=== PATIENT | female | born 1970 | race Caucasian/White ===

== ENCOUNTER 2019-04-01 17:26 | Inpatient (IN) | payer BC ==
[~2019-04-01] VITALS: Ht 157.5 cm; Wt 68.0 kg
[2019-04-01 17:31] VITALS: Ht 157.5 cm; Wt 68.0 kg
--- NOTE | 2019-04-01 17:37 | NUR ---
PATIENT BIB [facility] FROM [facility]. PT WAS PLACED ON A 5150 HOLD DUE TO SI. PT DENIES SI/HI DURING ASSESSMENT. PT PLEASANT BUT TEARFUL AND STATING "I DONT WANT TO GO BACK THERE, THEY ARE MEAN TO ME". BREATHING E/U, PT C/O ABD PAIN X 1 YEAR. 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 ABD DISTENDED, FIRM, NO PAIN ON PALPATION. PT DENIES N/V AND SAID SHE JUST STARTED HAVING PARATHENTESIS TO REMOVE FLUID FOR COMFORT. PATIENT SKIN IS DISCOLORED WITH MULTIPLE ABRASIONS NOTED TO UPPER AND LOWER EXTREMITIES. ABRASION NOTED TO RIGHT LEG AND KNEE. 3+ EDEMA TO BILATERAL LOWER EXTREMITIES. PT PLACED ON ALL MONITORS FOR FURTHER OBSERVATION. SITTER FROM [facility] BEDSIDE.
[2019-04-01 18:30] LABS: PLATELET COUNT 81 x10^3mcL (130-400); RED CELL DISTRIBUTION WIDTH 17.4 % (11.5-14.5)
[2019-04-01 18:31] LABS: CALCIUM 8.1 mg/dL (8.5-10.1); CARBON DIOXIDE 25.3 mmol/L (21-32); CHLORIDE SERUM 100 mmol/L (98-107); CREATININE SERUM 0.8 mg/dL (0.6-1.0); GFR1 > 60 mL/min; POTASSIUM SERUM 4.4 mmol/L (3.5-5.1); SODIUM SERUM 134 mmol/L (136-145)
[2019-04-01 18:42] LABS: UA SPECIFIC GRAVITY 1.015 (1.005-1.035); microscopic required? YES; urine erythrocyte 1+ (NEGATIVE)
[2019-04-01 18:43] LABS: ALKALINE PHOSPHATASE 273 U/L (46-116); ALT/SGPT 97 U/L (14-59); AST/SGOT 227 U/L (15-37); BILIRUBIN TOTAL 8.61 mg/dL (0.20-1.00); HDL CHOLESTEROL 40 mg/dL (40-60); LIPASE 205 IU/L (73-393); MAGNESIUM 1.8 mg/dL (1.8-2.4); TOTAL PROTEIN, SERUM 6.6 g/dL (6.4-8.2)
--- NOTE | 2019-04-01 18:43 | NUR ---
MEDICATED PER MD ORDERS
[2019-04-01 18:51] LABS: GLUCOSE SERUM 191 mg/dL (74-106)
[2019-04-01 18:53] LABS: ALBUMIN 2.2 g/dL (3.4-5.0); BAND NEUTROPHIL 1 % (0-10); BASOPHIL 0 % (0-2); CHOLESTEROL 102 mg/dL (<200); METAMYELOCTE 1 % (0-2); MONOCYTE 9 % (0-7); SEGMENTED NEUTROPHILS 66 % (37-75); T4(THYROXINE) 4.2 ug/dL (4.7-13.3)
[2019-04-01 18:55] LABS: rbc morphology (normal/abnorm) ABNORMAL (NORMAL)
[2019-04-01 18:56] LABS: schistocyte (helmet cell) 1+
[2019-04-01 18:57] LABS: PLATELET MORPHOLOGY PLATELETS DECREASED
--- NOTE | 2019-04-01 19:08 | NUR ---
PROVIDED REPORT TO BRADY KIRKPATRICK FOR CONTINUOUS CARE OF PATIENT.
--- NOTE | 2019-04-01 19:10 | NUR ---
PT REPORT RECEIVED FROM PURNIMA ABREU TO ASSUME PT CARE. PT RESTING IN A POSITION OF COMFORT AT THIS TIME AOX4, RESP EVEN AND UNLABORED, NO ACUTE DISTRESS NOTED. NEW IV ESTABLISHED ON PT AND MEDICATED PER EMAR.
[2019-04-01 19:49] LABS: AMPHETAMINE QUAL UR NONE DETECTED (See below)
--- NOTE | 2019-04-01 20:00 | NUR ---
IV INFILTRATED AT THIS TIME, REMOVED AND WARM COMPRESS APPLIED TO L ARM. DR HOPSON AWARE, PER DR HOPSON CONTINUE INSERTING PERIPHERAL LINES INTO PT.
--- NOTE | 2019-04-01 20:19 | NUR ---
PT FAMILY MEMBERS AT BEDSIDE TO VISIT OVER THE LAST 30 MINUTES, PT NOTED TEARFUL SEVERAL TIMES.
[2019-04-01] MEDS ORDERED: CIPRO500 MG PO (21:23)
[2019-04-01] MEDS ORDERED: LACTULOSE10 GM/152 PO (21:24)
[2019-04-01] MEDS ORDERED: LASIX40 MG PO (21:24)
[2019-04-01] MEDS ORDERED: VITB12I PO (21:24)
[2019-04-01] MEDS ORDERED: MIDODRINE HCL10 MG PO (21:24)
[2019-04-01] MEDS ORDERED: VITAMIN D32000 I2 PO (21:25)
[2019-04-01] MEDS ORDERED: XIFAXAN550 M1 PO (21:25)
[2019-04-01] MEDS ORDERED: PROTONIX40 MG PO (21:25)
[2019-04-01] MEDS ORDERED: ALDACTONE50 MG PO (21:25)
[2019-04-01] MEDS ORDERED: SYNTHROID0.125 MG PO (21:26)
--- NOTE | 2019-04-01 21:30 | NUR ---
PT REPORT CALLED TO DOUGLAS ABREU TO ASSUME PT CARE.
--- NOTE | 2019-04-01 21:35 | NUR ---
PT TRANSFERRED TO [facility] BY [facility] BY CAITLIN ABREU AND ERNIE EMT. PT ON FULL CM FOR TRANSPORT. PT AOX4, RESP EVEN AND UNLABORED, NO ACUTE DISTRESS NOTED. PT TRANSFERRED FROM [facility] TO BED WITHOUT INCIDENT. DOUGLAS ABREU TO ASSUME PT CARE.
[2019-04-01 22:19] VITALS: BP 104/71
--- NOTE | 2019-04-01 22:24 | NUR ---
RECEIVED PT FROM ED VIA OMID. ORIENTED PT TO ROOM AND SURROUNDINGS. IV NOTED TO RAC PATENT AND INTACT .TELE 27 PLACED ON PT READING STA. INSTRUCTED PT ON THE USE OF CALL LIGHT FOR ASSISTANCE. ENDORSED PT TO PRIMARY AMOS PETIT
--- NOTE | 2019-04-01 22:32 | NUR ---
RECEIVED PT FROM BRADY MCKENZIE. PT ORIENTED TO ROOM. IN NO ACUTE DISTRESS. CALL LIGHT WITHIN REACH. BED IN LOWEST POSITION. WILL CONTINUE TO MONITOR.
--- NOTE | 2019-04-02 01:30 | NUR ---
PT RESTING IN BED. RR EVEN AND UNLABORED. IN NO ACUTE DISTRESS. CALL LIGHT WITHIN REACH. BED IN LOWEST POSITION. WILL CONTINUE TO MONITOR.
--- NOTE | 2019-04-02 03:30 | NUR ---
PT REQUESTING TRAMADOL FOR GENERALIZED BODY PAIN. DR. CLARKE NOTIFIED. AWAITING FURTHER ORDERS.
--- NOTE | 2019-04-02 05:58 | NUR ---
LAU CATHETER REMOVED PER ORDERS. PT TOLERATED WELL.
--- NOTE | 2019-04-02 06:04 | NUR ---
PT CONTINUES TO REQUEST TRAMADOL FOR PAIN. DR. CLARKE NOTIFIED. AWAITING FURTHER ORDERS.
[2019-04-02 06:48] LABS: BASOPHIL % 0.1 % (0-2)
[2019-04-02 07:31] LABS: CHLORIDE SERUM 103 mmol/L (98-107); CREATININE SERUM 0.9 mg/dL (0.6-1.0); GFR1 > 60 mL/min; GLUCOSE SERUM 97 mg/dL (74-106); PHOSPHOROUS 3.7 mg/dL (2.5-4.9); POTASSIUM SERUM 4.3 mmol/L (3.5-5.1); SODIUM SERUM 136 mmol/L (136-145)
[2019-04-02 08:02] VITALS: BP 103/64
[2019-04-02 08:05] LABS: PLATELET COUNT 81 x10^3mcL (130-400); RED CELL DISTRIBUTION WIDTH 17.4 % (11.5-14.5)
--- NOTE | 2019-04-02 09:47 | NUR ---
SEEN BY DOCTOR BILLY. PATIENT IS VERY EMOTIONAL, CRYING AFTER DOCTOR MARIAJOSE DISCUSSED WITH PATIENT REGUARDING PLAN OF CARE AND CURRENT CONDITION.
--- NOTE | 2019-04-02 09:59 | NUR ---
ULTRASOUND ABDOMEN/GALL BLADDER CANCELLED PER DOCTOR MARIAJOSE'S ORDER.
--- NOTE | 2019-04-02 12:00 | NUR ---
OFF FLOOR FOR EGD VIA BED. NO ACUTE DISTRESS NOTED.
--- NOTE | 2019-04-02 12:38 | NUR ---
RECEIVED BACK FROM GI LAB VIA BED, ASLEEP, EASILY TO AROUSE NTOED DROWSY. NO REPS DISTRESS NOTED. V/S STABLE BP 105/63, HR 99, RR 16, O2SAT 99% ON ROOM AIR. S/L TO RFA INTACT AND PATENT. KEPT COMFORTABLE. CALL LIGHT PLACED WITHIN EASY REACH. SIDERAILS UP X2.
--- NOTE | 2019-04-02 14:55 | NUR ---
RESTING WITH EYES CLOSED, LAYING ON LEFT SIDE. NO ANY DISTRESS NOTED.
[2019-04-02 16:52] VITALS: BP 100/59
--- NOTE | 2019-04-02 18:21 | NUR ---
NO ACUTE DISTRESS THROUGHOUT SHIFT. EASILY CRY AND EMOTIONAL. FAMILY AT BEDSIDE AT THIS TIME VERY SUPPORTIVE. FULL LIQUID DIET DINNER PROVIDED AND TOLERATED WELL. BRP AND VOIDS FREELY WITH MINIMAL ASSISTANCE. SITTER 1:1 AT BEDSIDE. IV TO RAC INTACT AND PATENT.
--- NOTE | 2019-04-02 19:10 | NUR ---
RECEIVED PT FROM PREVIOUS SHIFT NURSE. PT AOX4, DENIES KATZ/DIZZINESS. ON TELE #27, ST, HR 102, DENIES CP/PRESSURE. DENIES SOB/DIFFICULTY BREATHING. IV TO RAC, INTACT AND PATENT. BED IN LOWEST POSITION. WILL CONTINUE TO MONITOR.
[2019-04-02 20:46] VITALS: BP 105/59
[2019-04-03] VITALS (7 sets, daily range): BP systolic 93–110; BP diastolic 54–67
--- NOTE | 2019-04-03 03:15 | NUR ---
PT RESTING IN BED. RR EVEN AND UNLABORED. IN NO ACUTE DISTRESS. CALL LIGHT WITHIN REACH. BED IN LOWEST POSITION. WILL CONTINUE TO MONITOR.
[2019-04-03 06:25] LABS: CALCIUM 7.8 mg/dL (8.5-10.1); CHLORIDE SERUM 103 mmol/L (98-107); CREATININE SERUM 0.7 mg/dL (0.6-1.0); GFR1 > 60 mL/min; GLUCOSE SERUM 90 mg/dL (74-106); MAGNESIUM 1.7 mg/dL (1.8-2.4); PHOSPHOROUS 3.5 mg/dL (2.5-4.9); POTASSIUM SERUM 4.1 mmol/L (3.5-5.1); SODIUM SERUM 137 mmol/L (136-145)
[2019-04-03 07:24] LABS: BASOPHIL % 0.9 % (0-2)
--- NOTE | 2019-04-03 07:30 | NUR ---
PT ENDORSE TO ME THIS MORNING, SITTING UP IN BED. AA/O X4. BREATHING EVEN AND UNLABORED ON RA. NO ACUTE RESP DISTRESS OR SOB NOTED. TELE 27 ST NOTED HR 101, DENIES ANY DISCOMFORT AT THIS TIME. PULSES PRESENT, EDEMA NOTED BLE +3. ABD DISTENDED NOTED, LAST BM 04/02. VOIDS BRP, GEN WEAKNESS/ AMB. BRUISES BUE AND ABRASION TO RLE AND R KNEE. IV TO THE RAC INTACT AND PATENT/HEPLOCKED. 1:1 AT BEDSIDE, PT IS VERY EMOTIONAL AT THIS TIME. CALL LIGHT IN REACH. BED IN LOW POSITION. WILL CONTINUE TO MONITOR. BY NURSING STATION.
[2019-04-03 08:30] LABS: PLATELET COUNT 63 x10^3mcL (130-400); RED CELL DISTRIBUTION WIDTH 17.7 % (11.5-14.5)
--- NOTE | 2019-04-03 08:38 | NUR ---
LAB CALLED HGB AND HCT OF 6.03/04 DR. CARTAGENA MADE AWARE. WILL CONTINUE TO MONITOR.
--- NOTE | 2019-04-03 14:40 | NUR ---
DR. HADLEY AT BEDSIDE 5099 CLEARED.
--- NOTE | 2019-04-03 15:15 | NUR ---
BLOOD TRANSFUSION VERIFIED WITH RN JOE. PER: VS AT 15:15 TEMP 99.1, PULSE 82, BP 93/54, RESP 18, PO2 99 RA. STARTED BLOOD TRANSFUSION AT 1530, VS 15MIN TO TRANSFUSION FOLLOW: TEMP 98.8, PULSE 83, BP 107/60, RESP 18, PO2 96 RA, DENIES ANY ADVERSE REACTIONS PT SITTING UP IN BED TALKING TO HER SISTER ON PHONE. WILL CONTINUE TO MONITOR.
[2019-04-03 16:19] LABS: BASOPHIL % 0.8 % (0-2)
[2019-04-03 16:23] LABS: PLATELET COUNT 76 x10^3mcL (130-400); RED CELL DISTRIBUTION WIDTH 18.5 % (11.5-14.5)
[2019-04-03 18:26] LABS: rbc morphology (normal/abnorm) ABNORMAL (NORMAL)
[2019-04-03 18:28] LABS: acanthocyte (spur cell) 1+
--- NOTE | 2019-04-03 18:30 | NUR ---
1 UNIT OF PACKED RBC COMPLETE, VS TEMP 99.0, 84 HR, BP 100/55, RESP 16, P02 99 RA, NO ADVERSE REACTIONS NOTED. PT FAMILY AT BEDSIDE. WILL CONTINUE TO MONTIOR.
--- NOTE | 2019-04-03 19:30 | NUR ---
NO ACUTE RESP DISTRESS OR SOB NOTED. DENIES ANY CP OR PRESSURE/ BY HER SIDE. WILL ENDORSE TO INCOMING RN.
--- NOTE | 2019-04-03 20:00 | NUR ---
RECEIVED PT IN BED, RESTING QUIETLY. ALERT AND ORIENTED. ABLE TO VERBALIZE NEEDS. DENIES HEADACHE/DIZZINESS. RESP. EVEN AND UNLABORED. ON ROOM AIR, NO ACUTE DISTRESS NOTED. DENIES CHEST PAIN OR ANY DISCOMFORT AT THIS TIME. HL TO REGIS, INTACT AND PATENT. CALM AT THIS TIME, NO COMPLAINTS NOTED. ASSISTED WITH HS CARE. CALL LIGHT WITHIN REACH. WILL CONTINUE TO MONITOR.
--- NOTE | 2019-04-04 01:37 | NUR ---
NO COMPLAINTS NOTED. RESTING QUIETLY, WITH EYES CLOSED, APPEARS ASLEEP, EASILY AROUSABLE. RESP. EVEN AND UNLABORED. NO ACUTE DISTRESS NOTED. WILL CONTINUE TO MONITOR.
[2019-04-04 04:45] VITALS: BP 114/71
--- NOTE | 2019-04-04 06:06 | NUR ---
SLEPT WELL. NO COMPLAINTS NOTED. RESP. EVEN AND UNLABORED. ON ROOM AIR, NO ACUTE DISTRESS NOTED. DUE MEDS GIVEN ORDERED, TRISTAN. WELL.AFEBRILE AND VITAL SIGNS STABLE. AMBULATES TO THE BATHROOM, VOIDING FREELY. KEPT COMFORTABLE. NO SEIZURE ACTIVITY NOTED.. WILL CONTINUE TO MONITOR.
[2019-04-04 06:23] LABS: CALCIUM 7.4 mg/dL (8.5-10.1); CARBON DIOXIDE 27.7 mmol/L (21-32); CHLORIDE SERUM 101 mmol/L (98-107); GFR1 > 60 mL/min; GLUCOSE SERUM 102 mg/dL (74-106); MAGNESIUM 1.7 mg/dL (1.8-2.4); PHOSPHOROUS 3.4 mg/dL (2.5-4.9); POTASSIUM SERUM 4.3 mmol/L (3.5-5.1); SODIUM SERUM 135 mmol/L (136-145)
--- NOTE | 2019-04-04 07:00 | NUR ---
RECIEVED REPORT FROM [facility] NURSE, PATIENT ALERT AND ORIENTED. PATIENT STATES SHE IS GOING TO [place] AFTER DISCHARGE. NO APPARENT DISCOMFORT.
[2019-04-04 08:00] LABS: BASOPHIL % 0.3 % (0-2)
[2019-04-04 08:06] LABS: PLATELET COUNT 63 x10^3mcL (130-400); RED CELL DISTRIBUTION WIDTH 19.6 % (11.5-14.5)
[2019-04-04 08:10] LABS: rbc morphology (normal/abnorm) ABNORMAL (NORMAL)
[2019-04-04 08:14] VITALS: BP 102/60
--- NOTE | 2019-04-04 08:30 | NUR ---
MORNING ASSESSMENT REVEALED EPISODES OF CONFUSION. JAUNDICE NOTED IN SCLERA OF EYES. FIRM DISTENDED ABD ON ASSESSMENT. ASCITES PRESENT. EDEMA PRESENT IN BILATERAL LOWER EXTREMETIES. NO REPORTS OF CHEST PAIN AT THIS TIME. HEART RATE REGULAR. TELE REPORT SHOWING SINUS RHYTHYM. LUNGS CLEAR TO AUSCULTATION.
[2019-04-04 08:37] LABS: BILIRUBIN DIRECT 4.89 mg/dL (0.0-0.2); BILIRUBIN TOTAL 8.08 mg/dL (0.20-1.00)
[2019-04-04 08:48] LABS: ALBUMIN 1.9 g/dL (3.4-5.0); TOTAL PROTEIN, SERUM 5.8 g/dL (6.4-8.2)
[2019-04-04 11:49] VITALS: BP 117/70
[2019-04-04 13:02] VITALS: BP 117/70
--- NOTE | 2019-04-04 14:00 | NUR ---
HOSPICE CAME TO SPEAK WITH PATIENT. PATIENT INFORMED THAT SHE WILL BE DISCHARGED TODAY. HOSPICE ARRANGING DISCHARGE.
--- NOTE | 2019-04-04 16:45 | NUR ---
PATIENT INSISTING TO GO OUTSIDE FOR 5 MINUTES "I JUST WANT TO GO OUT IN THE SUN FOR A FEW MINUTES THATS ALL, I'M FEELING COLD", INFORMED HER WE CAN PROVIDE WARM BLANKETS AND TURN ON HEATER IN ROOM. PATIENT INSISTING TO GO OUTSIDE. CLARKE NURSE PRESENT AND AWARE. ACCOMPANIED BY RN VIA WHEELCHAIR. NOW BACK IN BED AFTER 5 MINUTES IN [facility]. NO COMPLAINTS OF DISCOMFORT. SAFETY PREC REINFORCED, CALL LIGHT WITHIN REACH. PER PATIENT, TO ARRIVE WITHIN AN HOUR.
--- NOTE | 2019-04-04 18:45 | NUR ---
HERE TO TAKE PATIENT HOME, PICTURES TAKEN OF WOUNDS TO RLE, DRESSINGS CHANGED. IV DC'D CATH INTACT. TELE RETURNED TO TECH STATION. DISCHARGE INSTRUCTIONS AND HOME MEDS GIVEN, VERBALIZED UNDERSTANDING. LEAVING UNIT VIA WHEELCHAIR. NO SIGN OF ACUTE DISTRESS.
--- NOTE | 2019-04-05 07:56 | NUR ---
WOUND CARE CONSULT NOT DONE, PT DISCHARGED.
== END 2019-04-04 18:45 | disposition home or self-care (01) | DRG 432 ==
LOC: ED 17:26 → DU 20:35
PROVIDERS: Emergency Medicine; Internal Medicine Gastroenterology; ADMIT Internal Medicine
PROC: 06L38CZ Occlusion of Esophageal Vein with Extraluminal Device, Via Natural or Artificial Opening Endoscopic (ICD-10-PCS; principal; 2019-04-02 11:30)
PROC: 30233N1 Transfusion of Nonautologous Red Blood Cells into Peripheral Vein, Percutaneous Approach (ICD-10-PCS; 2019-04-03)
DX: K70.31 Alcoholic cirrhosis of liver with ascites (principal); I21.A1 Myocardial infarction type 2; E43 Unspecified severe protein-calorie malnutrition; K76.6 Portal hypertension; I85.10 Secondary esophageal varices without bleeding; I42.9 Cardiomyopathy, unspecified; D68.9 Coagulation defect, unspecified; I42.6 Alcoholic cardiomyopathy; K42.9 Umbilical hernia without obstruction or gangrene; J44.9 Chronic obstructive pulmonary disease, unspecified; F10.10 Alcohol abuse, uncomplicated; Y90.9 Presence of alcohol in blood, level not specified; D53.1 Other megaloblastic anemias, not elsewhere classified; J45.909 Unspecified asthma, uncomplicated; I50.9 Heart failure, unspecified; E03.9 Hypothyroidism, unspecified; E83.51 Hypocalcemia; F17.210 Nicotine dependence, cigarettes, uncomplicated; R74.0 Nonspecific elevation of levels of transaminase and lactic acid dehydrogenase [LDH]; Z23 Encounter for immunization; Z88.8 Allergy status to other drugs, medicaments and biological substances; Z79.899 Other long term (current) drug therapy; Z68.24 Body mass index [BMI] 24.0-24.9, adult; Z98.84 Bariatric surgery status
CPT/HCPCS: 36600; 43235; 83880; 90715; 99406; G0378; G0480; J0696; J1200; J1610; J1650; J1940; J1956; J2250; J2310; J2405; J2916; J3010; J3430; J3475; J3490; J7030; J7620; P9016; Q0092; Q0163